=== PATIENT | female | born 1995 | race Caucasian/White ===

== ENCOUNTER 2017-09-18 20:42 | Emergency (ER) | payer OTHER, MEDICAID, SELFPAY ==
--- NOTE | 2017-09-18 23:50 | ED.VISSUMM ---
- ER Visit Summary Date of Service: 09/18/17 Chief Complaint: [] Injury to left shoulder History of Present Illness: The patient is a 22 F patient stated she had a resident phone or at work in fell backwards and landed on the person. She has some mild shoulder discomfort. Dizzy initially some nausea that is resolved. She is able to move her arms normally. Came in for further evaluation. Physical Examination: [] Vital signs reviewed General: Well-nourished well-developed Head: Normocephalic atraumatic Eyes: Pupils equal round and reactive to light extraocular movements intact ENT: TMs clear no hemotympanum no trauma Neck: Nontender full range of motion. Mild tenderness left trapezius Cardiovascular: Regular rate rhythm no murmurs normal S1-S2 Respiratory: No distress clear to auscultation bilaterally chest nontender Abdomen: Soft nontender nondistended normal bowel sounds no masses Back: Nontender no CVA tenderness Extremities: Nontender active range of motion ?4 extremities no trauma Skin: Normal color no trauma Neuro alert oriented cranial nerves II through XII intact normal strength sensation reflexes Test Results: [] Emergency Department Course and Treatment: [] Reassured. I think she just strained her left trapezius. She will follow-up as an outpatient. Given ibuprofen. Treatment Plan: [] Disposition: [] Impression: [] Left trapezius strain Fall This note was generated with [employer] dictation software. It may contain incorrect words, spelling, and punctuation that were not noted in review of the chart prior to signing ED Disposition - Plan for ED Patient: Referrals: Care Physician,No Primary [Primary Care Provider] -
== END 2017-09-18 23:00 | disposition home or self-care (01) ==
PROVIDERS: Emergency Provider Emergency Medicine
DX: S46.812A Strain of other muscles, fascia and tendons at shoulder and upper arm level, left arm, initial encounter (principal); W18.39XA Other fall on same level, initial encounter; E66.9 Obesity, unspecified; Z72.0 Tobacco use
CPT/HCPCS: 99282

== ENCOUNTER 2018-04-16 14:09 | Emergency (ER) | payer MEDICAID, SELFPAY ==
[2018-04-16 14:10] VITALS: BP 139/89; PULSE 79; RESP 18; TEMP 36.7; O2SAT 99; BMI 39.3
--- NOTE | 2018-04-16 14:31 | RAD_ITS ---
STUDY: X-RAY - LEFT KNEE REASON FOR EXAM: Pain after feeling a pop. TECHNIQUE: 4 view(s) of the knee. COMPARISON: None. FINDINGS: Normal visualized distal femur. Normal visualized proximal tibia and fibula. Normal proximal tibiofibular articulation. Normal medial femorotibial compartment. Normal lateral femorotibial compartment. Normal patellofemoral articulation. The soft tissue structures are unremarkable. RAD/Knee 4 or More Views IMPRESSION: Normal x-ray examination of the left knee. Electronically Signed: Yazan Henning MD at 15:32 EST Tel , Service support ,
--- NOTE | 2018-04-16 15:55 | ED.DCSUM_ITS ---
- ER Visit Summary Date of Service: 04/16/18 Chief Complaint: Left knee pain History of Present Illness: The patient is a 23 F who was pushing a car today when she felt a pop in the left knee pain. Points to the lateral aspect of the knee as a source of she denies any other injuries. She did not get run over by the car. Physical Examination: Afebrile vital signs stable Patient's ligaments are stable upon testing. There is no palpable effusion. There is no obvious deformity. There is tenderness over the LCL. Test Results: X-rays of the knee were negative Emergency Department Course and Treatment: Patient will use an Jay wrap. Ibuprofen ice and rest. Follow-up in 10-14 days if not improved Impression: 1. Left knee sprain This note was generated with [employer] dictation software. It may contain incorrect words, spelling, and punctuation that were not noted in review of the chart prior to signing ED Disposition - Plan for ED Patient: Disposition: Home or Assisted Living Chief Complaint: Lower Extremity Injury Instructions: ED Sprain Knee Referrals: Nestor Polanco MD [STAFF PHYSICIAN] - 10-14 Days if not better
[2018-04-16 16:03] VITALS: RESP 16
== END 2018-04-16 16:04 | disposition home or self-care (01) ==
PROVIDERS: Emergency Provider Emergency Medicine
DX: S83.92XA Sprain of unspecified site of left knee, initial encounter (principal); X50.9XXA Other and unspecified overexertion or strenuous movements or postures, initial encounter; Y93.89 Activity, other specified; Y92.9 Unspecified place or not applicable; Y99.9 Unspecified external cause status; Z72.0 Tobacco use
CPT/HCPCS: 73564; 99284; J7040; A4216